=== PATIENT | male | born 1985 | race Caucasian/White ===

== ENCOUNTER 2021-05-09 18:17 | Emergency (ER) | payer OTHER ==
[~2021-05-09] VITALS: Ht 188 cm; Wt 100.0 kg
[2021-05-09 18:23] VITALS: BP 153/89
[2021-05-09] MEDS ORDERED: HYDR-3965 PO (19:01)
== END 2021-05-09 19:33 | disposition home or self-care (01) ==
LOC: ER 18:19
DX: S92.322A Displaced fracture of second metatarsal bone, left foot, initial encounter for closed fracture (principal); M79.672 Pain in left foot; Z72.89 Other problems related to lifestyle; X58.XXXA Exposure to other specified factors, initial encounter; Y93.89 Activity, other specified; Y92.89 Other specified places as the place of occurrence of the external cause; Y99.8 Other external cause status
CPT/HCPCS: 29515; 73630; 99283